=== PATIENT | female | born 1960 | race Two or more races ===

== ENCOUNTER 2025-07-23 08:10 | Day surgery (SDC) | payer MEDICAID, SELFPAY ==
[2025-07-23 08:32] VITALS: BP 142/92; PULSE 60; RESP 16; TEMP 36.1; O2SAT 99
[2025-07-23] MEDS: Lactated Ringers 1,000 ML 80 ML IV (08:51)
--- NOTE | 2025-07-23 09:10 | W.PM.PROGNOT ---
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 She is due for surveillance colonoscopy. Next year upper and lower endoscopy. Subjective Subjective Interval history since last seen: Janet is a 65-year-old man who is well-known to me from [facility]. 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 Mother had colon cancer. She gets colonoscopies every year. She gets every endoscopies every other year Last double was just over 1 year ago Exam Narrative Exam Narrative: Gen: Non-toxic, comfortable and interactive Neuro: Alert and oriented x3 Psych: Good mood and affect. Good insight and understanding into condition. Chest: Non-labored breathing, no wheezing, no visible shortness of breath. Heart: Regular Objective Last Vital Signs Temp 97.0 F L 07/23/25 08:32 Pulse 60 07/23/25 08:32 Resp 16 07/23/25 08:32 BP 142/92 H 07/23/25 08:32 Pulse Ox 99 07/23/25 08:32 VTE Prohylaxis Risk Level: Low Risk Contraindications: None Prophylaxis: Patient ambulatory Time Spent with Patient Time Spent with Patient: <25 minutes Time was spent: counseling the patient and care coordination
--- NOTE | 2025-07-23 09:18 | W.ANESPRE ---
General Info Date of Service Date Performed: 07/23/25 Height: 5 ft 3 in Weight: 101 kg Body Mass Index (BMI): 39.4 Surgical Procedure: Operation Date: 07/23/25 09:05 Proposed Procedure Side Surgeon p Yahaira Little MD Meds Allergies and Home Medications Allergies Allergy/AdvReac Type Severity Reaction Status Date / Time doxycycline AdvReac Severe anxiety Verified 07/23/25 08:28 tetracycline AdvReac Nausea Verified 07/23/25 08:28 Home Medication ?Medication ?Instructions ?Recorded aspirin 81 mg tablet 81 mg PO DAILY 07/19/25 bisacodyl 5 mg tablet,delayed 5 mg PO ONCE #4 tabs 07/19/25 release (Dulcolax (bisacodyl)) bupropion HCl 300 mg 24 hr tablet, 300 mg PO QAM 07/19/25 extended release cholecalciferol (vitamin D3) 125 125 mcg PO DAILY 07/19/25 mcg (5,000 unit) capsule dextroamphetamine-amphetamine ER 10 mg PO QAM 07/19/25 10 mg 24hr capsule,extend release (Adderall XR) escitalopram oxalate 20 mg tablet 20 mg PO DAILY 07/19/25 fluticasone propionate 50 2 spray intranasal DAILY 07/19/25 mcg/actuation nasal spray,suspension naltrexone 50 mg tablet 50 mg PO DAILY 07/19/25 polyethylene glycol 3350 17 17 g PO ONCE #238 grams 07/19/25 gram/dose oral powder B-complex with vitamin C (Super 1 cap PO DAILY 07/20/25 B/C capsule) Current Visit Medications: Current Medications Generic Name Dose Route Start Last Admin Trade Name Freq PRN Reason Stop Dose Admin Ringer's Solution 1,000 mls @ 80 mls/hr 07/23/25 06:00 07/23/25 08:51 IV 08/19/25 23:59 80 mls/hr INFUSION TAMMY Administration Sodium Chloride 0 ml 07/23/25 06:00 Normal Saline Flush 10 Ml Syr IV 08/19/25 23:59 PRN PRN Sodium Chloride 0 ml 07/23/25 06:00 Normal Saline 10 Ml Vial IJ 08/19/25 23:59 DIRECTED PRN Sterile Water 0 ml 07/23/25 06:00 Water,Injection,Sterile 10 Ml Vial IJ 08/19/25 23:59 DIRECTED PRN [facility] Medical History Medical History Lyme disease Ulnar neuropathy at elbow Vitamin D deficiency Steatosis of liver Stage 2 chronic kidney disease Prediabetes Palpitations Osteopenia Obstructive sleep apnea CPAP Morbid obesity Migraine Torres syndrome Iron deficiency anemia Incisional hernia Hypocalcemia Hypertension Herpes simplex Gastroesophageal reflux disease Elevated bilirubin Disorder of vitamin B12 Disorder of gallbladder Depressive disorder Chronic rhinitis Chronic back pain Chronic alcoholism in remission Carpal tunnel syndrome Attention deficit hyperactivity disorder Anxiety Surgical History Surgical History Hx of abdominal surgery Laparoscopic ileectomy 11/17/2022 History of total abdominal hysterectomy and bilateral salpingo-oophorectomy History of colonoscopy 08/16/2017 Tobacco Smoking/Tobacco Use Status: Former Tobacco Use Alcohol Alcohol Intake: former Substance Use Substance use type: does not use Vital Signs and Lab Results Vital Signs Most Recent Vital Signs in EMR: Most Recent Vital Signs Temp Pulse Resp BP Pulse Ox 36.1 C L 60 16 142/92 H 99 07/23/25 08:32 07/23/25 08:32 07/23/25 08:32 07/23/25 08:32 07/23/25 08:32 Anesthesia Assessment and Plan Anesthesia History Personal History: No History of Anesthesia Complications Family History: No Family History of Anesthesia Complications Exercise Tolerance Exercise Tolerance: Metabolic Equivalents>4 Pertinent Negatives Pertinent Negatives: No Major Cardiovascular Symptoms or Complaints and No Major Pulmonary Symptoms or Complaints Cardiac & Pulmonary Exam Cardiac Exam: Normal S1/S2 Heart Sounds Pulmonary Exam: Clear Bilateral Breath Sounds Implantable Cardiac Device Does patient have a Pacemaker or an ICD?: No Airway Exam Known Difficult Airway: No Mallampati Class: 2 Mouth Opening: Normal (> 3cm) Thyromental Distance: Greater than 3 cm Neck Range of Motion: Full ROM Neck Circumference: Normal Teeth Condition: Normal Dentition ASA Classification ASA Score: ASA 3 Emergency Case?: No NPO Status NPO Status: NPO Clears >2 hours, Solids >8 hours Anesthesia Plan Resuscitation Status: Full Code Anesthesia Technique: General Anesthesia Airway Planned: Natural Airway Monitors Used: Standard Monitors
[2025-07-23 09:20] VITALS: BMI 39.4
--- NOTE | 2025-07-23 09:51 | BOWEL_PTH ---
PATIENT: Janet Cota LOC: [facility] U#:[id number] AGE/SX: 65/F ROOM: RE07/23/[address]: Chandler Little : 1960 BED: DIS: 07/23/2025 SPEC #: [id number] RECD: 07/23/25 12:55 STATUS: SWAPNA RE #: [id number] TRISTEN: 07/23/25 09:[address]: Chandler Little DEPT: Surgical Specimen RECD BY: Ada Dao ENTERED: 07/23/25 12:55 SP TYPE: Bowel OTHR DR: Gissel Major Tissues: 1 - BIOPSY BOWEL Procedures: GROSS AND MICRO LEVEL 4 Comments: [id number]
[2025-07-23 10:02] VITALS: BP 123/91; PULSE 61; RESP 20; TEMP 36.4; O2SAT 98
--- NOTE | 2025-07-23 10:09 | W.ANESPOSTOP ---
Postoperative Evaluation Date, Time and Location Date Performed: 07/23/25 Time Performed: 10:03 Patient Location: Day Surgery Unit Vital Signs Most Recent Imported Vital Signs: Most Recent Vital Signs Temp Pulse Resp BP Pulse Ox 36.4 C L 61 20 123/91 H 98 07/23/25 10:02 07/23/25 10:02 07/23/25 10:02 07/23/25 10:02 07/23/25 10:02 Pain Score Most Recent Pain Score: Most Recent Pain Score Pain Level 0 07/23/25 08:32 Assessment Mental Status: Arousable with meaningful communication Airway and Respiratory Function: Patent airway with normal (patient baseline) respiratory exam Cardiovascular Function: Hemodynamically Stable Hydration Status: Adequately Hydrated Nausea & Vomiting: No Nausea or Vomiting Pain: Pt. Denies Any Pain Peripheral Nerve Block: Patient did not receive a nerve block
--- NOTE | 2025-07-23 10:14 | W.COLOREPORT ---
Date of service: 07/23/25 Time of Service: 10:14 Colonoscopy Report Procedure Description: PROCEDURES PERFORMED: 1. Colonoscopy with cold forceps polypectomy x1 PREOPERATIVE DIAGNOSIS: Surveillance colonoscopy, Torres syndrome, intestinal cancer POSTOPERATIVE DIAGNOSIS: Colorectal polyp SURGEON: Marcia Little MD INDICATION FOR PROCEDURE: the patient is a 65-year-old woman with personal history of Torres syndrome and intestinal cancer, a family history of colon cancer and she gets colonoscopies every year for surveillance. She has no symptoms of concern. FINDINGS: Normal terminal ileum. Polyps: In the transverse colon a small 2-3 mm polyp was removed with cold forceps technique. No obvious diverticular disease anywhere. No hemorrhoid disease. SURVEILLANCE interval/FOLLOW-UP: Repeat in 1 year for colonoscopy. Next colonoscopy will also have upper endoscopy. SPECIMENS: Yes EBL: Minimal COMPLICATIONS: None QUALITY of prep: Excellent Procedure in detail: The patient gave written consent and was in agreement with the indications, the potential risks as well as the benefits of the procedure. She was taken to the endoscopy suite and laid in the left lateral decubitus position. A timeout was performed and anesthesia was administered which was tolerated well. I started the procedure. Digital rectal and visual examination was performed and grossly within normal limits. A well-lubricated flexible colonoscope was then introduced and passed without any notable difficulty all the way to the cecum identified by the ileocecal valve and the appendiceal orifice. The terminal ileum was briefly, superficially intubated and looked normal. The scope was then slowly withdrawn with the above-noted findings. The patient tolerated the procedure well and was taken to the PACU in hemodynamically stable condition.
--- NOTE | 2025-07-23 10:18 | W.PM.DSUDISC ---
Date of service: 07/23/25 Discharge Plan Disposition Patient Disposition: Home Condition: Good Discharge Details Attending Provider: Chandler Little Primary Care Provider: Gissel Major Home Meds and New Rx's Prescriptions: No Action naltrexone 50 mg tablet 50 mg PO DAILY dextroamphetamine-amphetamine [Adderall XR] 10 mg capsule,extended release 24hr 10 mg PO QAM aspirin 81 mg tablet 81 mg PO DAILY fluticasone propionate 50 mcg/actuation spray,suspension 2 spray intranasal DAILY Rx Instructions: administer into each nostril cholecalciferol (vitamin D3) 125 mcg (5,000 unit) capsule 125 mcg PO DAILY escitalopram oxalate 20 mg tablet 20 mg PO DAILY bupropion HCl 300 mg tablet extended release 24 hr 300 mg PO QAM bisacodyl [Dulcolax (bisacodyl)] 5 mg tablet,delayed release (DR/EC) 5 mg PO ONCE Qty: 4 0RF Rx Instructions: Take per colonoscopy instructions provided by ordering providers office polyethylene glycol 3350 17 gram/dose powder 17 g PO ONCE Qty: 238 0RF Rx Instructions: Take per colonoscopy instructions provided by ordering providers office B-complex with vitamin C [Super B/C] Capsule 1 cap PO DAILY Discharge Instructions Additional Instructions: FINDINGS: Everything overall looks healthy inside of you. I did find a polyp and removed it. It is nothing to worry about. That is why we do these colonoscopies. The polyp will get tested but I doubt it would change anything as far as the next colonoscopy. We should simply do another 1 next year. We should do an EGD at the same time. July 2026 or August 2026 is fine for scheduling. Stand Alone Forms: Portal Information Activity:: Activity as Tolerated Diet:: As Tolerated DS: Diagnosis Discharge Diagnosis (1) Torres syndrome:
[2025-07-23 10:29] VITALS: BP 134/88; PULSE 56; RESP 16; TEMP 36; O2SAT 100
== END 2025-07-23 10:56 | disposition home or self-care (01) ==
PROVIDERS: PCP Internal Medicine; Visit Provider Student in an Organized Health Care Education/Training Program
PROC: 0DJD8ZZ Inspection of Lower Intestinal Tract, Via Natural or Artificial Opening Endoscopic (ICD-10-PCS; CPT 45378; principal; 2025-07-23 09:00)
DX: Z12.11 Encounter for screening for malignant neoplasm of colon (principal); K63.5 Polyp of colon; Z15.09 Genetic susceptibility to other malignant neoplasm; Z80.0 Family history of malignant neoplasm of digestive organs
CPT/HCPCS: 45380; 88305; J2003; J2704